=== PATIENT | male | born 1940 | race Caucasian/White ===

== ENCOUNTER 2016-08-11 10:11 | Emergency (ER) | payer MEDICARE, MEDICAID ==
[2016-08-11] MEDS ORDERED: ACETAMINOPHEN 650 MG SUPP.RECT PR ONE (11:51)
[2016-08-11] MEDS ORDERED: NORMAL SALINE 1000 ML 1,000 ML IV PRN (12:03)
--- NOTE | 2016-08-11 12:03 | ER Document Report ---
ED General - General Chief Complaint: Abdominal Pain Stated Complaint: ABDOMINAL PAIN Time seen by provider: 12:02 Mode of Arrival: Ambulatory Information source: Patient Notes: The patient is a 76-year-old man with a history of COPD (2 L nasal cannula) and multiple sclerosis who lives alone in a mobile home (the patient states he is able to get around). The patient is brought in by ambulance with subjective fevers and left lower quadrant pain. Patient states his cat a good appetite and is requesting food. TRAVEL OUTSIDE OF THE [place] IN LAST 30 DAYS: No - HPI Onset: Yesterday Onset/Duration: Gradual Quality of pain: Dull Severity: Mild Pain Level: 1 Associated symptoms: denies: Chills, Fever, Shortness of breath Exacerbated by: Denies Relieved by: Denies Similar symptoms previously: Yes Recently seen / treated by doctor: No - Related Data Allergies/Adverse Reactions: Penicillins Allergy (Verified 05/07/16 09:11) Past Medical History - General Information source: Patient - Social History Smoking Status: Never Smoker Cigarette use (# per day): No Chew tobacco use (# tins/day): No Frequency of alcohol use: None Drug Abuse: None Lives with: Alone Family History: Reviewed & Not Pertinent Patient has suicidal ideation: No Patient has homicidal ideation: No - Past Medical History Cardiac Medical History: Reports: Hx Atrial Fibrillation, Hx Coronary Artery Disease, Hx Hypercholesterolemia, Hx Hypertension Pulmonary Medical History: Reports: Hx COPD Renal/ Medical History: Reports: Hx Kidney Stones GI Medical History: Reports: Hx Gastroesophageal Reflux Disease Psychiatric Medical History: Denies: Hx Depression Past Surgical History: Reports: Hx Cardiac Surgery, Hx Coronary Artery Bypass Graft - 5-way, Hx Open Heart Surgery - 5 vessel bypass - Immunizations Hx Diphtheria, Pertussis, Tetanus Vaccination: Yes Review of Systems - Review of Systems Constitutional: denies: Chills, Fever EENT: No symptoms reported Cardiovascular: No symptoms reported Respiratory: No symptoms reported Gastrointestinal: See HPI Genitourinary: No symptoms reported Male Genitourinary: No symptoms reported Musculoskeletal: No symptoms reported Skin: No symptoms reported Hematologic/Lymphatic: No symptoms reported Neurological/Psychological: No symptoms reported Physical Exam - Vital signs Vitals: Resp 20 08/11/16 10:25 Notes: Physical exam: GENERAL: 76-year-old man, alert and oriented 3, appears dehydrated HEAD: Atraumatic, normocephalic. EYES: Pupils equal round and reactive to light, extraocular movements intact, sclera anicteric, conjunctiva are normal. ENT: TMs normal, nares patent, oropharynx clear without exudates. Dry mucous membranes. NECK: Normal range of motion, supple without lymphadenopathy or JVD. LUNGS: Breath sounds clear to auscultation bilaterally and equal. No wheezes rales or rhonchi. HEART: Regular rate and rhythm without murmurs, rubs or gallops. ABDOMEN: Soft, left lower quadrant tenderness, normoactive bowel sounds. No guarding, no rebound. No masses appreciated. Testes 2: Nontender. Rectal exam: No stool in vault, no masses, no prostate tenderness. Sacrum: Patient does have grade 1 breakdown over the sacrum. EXTREMITIES: Normal range of motion, no pitting or edema. No clubbing or cyanosis. NEUROLOGICAL: Cranial nerves II through XII grossly intact. Normal speech, normal gait. PSYCH: Normal mood, normal affect. SKIN: Warm, Dry, normal turgor, no rashes or lesions noted. Course - Re-evaluation Re-evalutation: 08/11/16 19:13 Note: Chest x-ray is similar to a chest x-ray done in June. The official report states that the findings are consistent with CHF. However, if anything, clinically the patient appears dry. I do not believe easing congestive heart failure. The humerus x-ray shows that he has a healing displaced mid humerus fracture (there is significant callous formation compared to previous x-ray). The abdominal CT shows mesenteric fat stranding around the descending colon which may be a developing colitis or diverticulitis. Clinically, the patient is presenting like a mild diverticulitis. There is 5 days or atelectasis versus consolidation and a left pleural effusion. Clinically the patient does not have any chest pain, shortness of breath or cough and I do not believe he has a pneumonia at this time. I have discussed the findings with the patient. His white count looks good and his vital signs are stable. The patient would like to go home and he has good support from his neighbors and they will be able to order picker/assembler his medicines for him. I will give him [id number] medicines. 08/11/16 19:21 - Vital Signs Vital signs: Temp Pulse Resp BP Pulse Ox 97.8 F 88 20 123/71 96 08/11/16 17:42 08/11/16 17:42 08/11/16 17:42 08/11/16 17:42 08/11/16 17:42 - Laboratory Result Diagrams: 08/11/16 11:59 08/11/16 11:59 Laboratory results interpreted by me: 08/11/16 08/11/16 08/11/16 11:59 11:59 11:59 RBC 4.29 L Hgb 11.6 L Hct 36.7 L MCHC 31.5 L RDW 17.6 H Plt Count 148 L Sodium 135.7 L Calcium 8.1 L ALT 17 L Alkaline Phosphatase 413 H Total Protein 5.3 L Albumin 2.6 L Lipase 14.0 L Urine Protein 30 H Urine Blood SMALL H Urine Urobilinogen 2.0 H - Diagnostic Test Radiology reviewed: Image reviewed, Reports reviewed - Abdominal CT consistent with diverticulitis Discharge - Discharge Clinical Impression: diverticulitis Condition: Stable Disposition: HOME, SELF-CARE Additional Instructions: Recommendations: Rest, drink plenty of fluids, advance diet as tolerated. Take antibiotics as prescribed. Take Zofran for nausea as needed. Return to the emergency room with worsening abdominal pain, persistant pain or pain which moves to the right lower abdomen. You can try Probiotics: Activia Probiotic is sold next is milk and 3225 films : Twice daily for the next 2 weeks. Follow-up with a physician in the next week. Prescriptions: Ciprofloxacin HCl [Cipro 500 mg Tablet] 500 mg PO BID #20 tablet Metronidazole [Flagyl 500 mg Tablet] 500 mg PO TID #30 tablet
[2016-08-11 12:26] LABS: ABSOLUTE EOSINOPHILS # (AUTO) 0.1 10^3/uL (0.0-0.6); ABSOLUTE LYMPHOCYTES (AUTO) 1.1 10^3/uL (0.5-4.7); ABSOLUTE MONOCYTES (AUTO) 0.5 10^3/uL (0.1-1.4); ABSOLUTE NEUT (AUTO) 4.5 10^3/uL (1.7-8.2); BASOPHILS % (AUTO) 0.4 % (0-2); EOSINOPHILS % (AUTO) 2.3 % (0-6); HEMATOCRIT 36.7 % (37.9-51.0); HEMOGLOBIN 11.6 g/dL (13.5-17.0); HGB HCT DIFFERENCE -1.9; LYMPHOCYTES % (AUTO) 17.8 % (13-45); MEAN CORPUSCULAR HGB CONC 31.5 g/dL (32.0-36.0); MEAN CORPUSCULAR VOLUME 86 fl (80-97); MONOCYTES % (AUTO) 7.3 % (3-13); RED BLOOD COUNT 4.29 10^6/uL (4.35-5.55); RED CELL DISTRIBUTION WIDTH 17.6 % (11.5-14.0); SEGMENTED NEUTROPHILS % (AUTO) 72.2 % (42-78); WHITE BLOOD COUNT 6.2 10^3/uL (4.0-10.5)
[2016-08-11 12:27] LABS: APPEARANCE,URINE CLEAR; BILIRUBIN,URINE NEGATIVE (NEGATIVE); GLUCOSE, URINE NEGATIVE (NEGATIVE); KETONES,URINE NEGATIVE (NEGATIVE); LEUKOCYTE ESTERASE,URINE NEGATIVE (NEGATIVE); NITRITE,URINE NEGATIVE (NEGATIVE); PROTEIN,URINE 30 mg/dL (NEGATIVE); URINE SPECIFIC GRAVITY 1.014
[2016-08-11 12:44] LABS: ALANINE AMINOTRANSFERASE 17 U/L (21-72); ALBUMIN 2.6 g/dL (3.5-5.0); ALKALINE PHOSPHATASE 413 U/L (38-126); ANION GAP 9 (5-19); ASPARTATE AMINO TRANSFERASE 30 U/L (17-59); BILIRUBIN,TOTAL 0.6 mg/dL (0.2-1.3); BLOOD UREA NITROGEN 13 mg/dL (7-20); CALCIUM 8.1 mg/dL (8.4-10.2); CARBON DIOXIDE 25 mmol/L (22-30); CHLORIDE 102 mmol/L (98-107); CREATININE RESULT 0.77 mg/dL (0.52-1.25); GLUCOSE 84 mg/dL (75-110); POTASSIUM 3.6 mmol/L (3.6-5.0); SODIUM 135.7 mmol/L (137-145); TOTAL PROTEIN 5.3 g/dL (6.3-8.2)
[2016-08-11] MEDS ORDERED: CIPROFLOXACIN HCL 500 MG TABLET PO ONE (18:43)
[2016-08-11] MEDS ORDERED: METRONIDAZOLE 500 MG TABLET PO ONE (19:01)
[2016-08-11] MEDS ORDERED: ONDANSETRON ODT 4 MG TAB (6 TAB/DSPK) PO PRN (19:16)
[2016-08-12 00:32] VITALS: BP 151/88
== END 2016-08-11 20:20 | disposition home or self-care (01) ==
LOC: ER 10:11
DX: S42.301D Unspecified fracture of shaft of humerus, right arm, subsequent encounter for fracture with routine healing (principal); X58.XXXD Exposure to other specified factors, subsequent encounter; K57.92 Diverticulitis of intestine, part unspecified, without perforation or abscess without bleeding; R10.32 Left lower quadrant pain; J44.9 Chronic obstructive pulmonary disease, unspecified; J90 Pleural effusion, not elsewhere classified; I10 Essential (primary) hypertension; Z88.0 Allergy status to penicillin; Z99.81 Dependence on supplemental oxygen; I25.10 Atherosclerotic heart disease of native coronary artery without angina pectoris; Z87.442 Personal history of urinary calculi; Z95.1 Presence of aortocoronary bypass graft
CPT/HCPCS: 99285; 96360; 36415; 83690; 85025; 80053; 81001; 71010; 73060; 74177; A9270 ×4; J7030

== ENCOUNTER 2016-08-12 06:00 | Emergency (ER) | payer MEDICARE, MEDICAID ==
[2016-08-12] MEDS ORDERED: MAG HYDROX/AL HYDROX/SIMETH SUSP 30 ML UDCUP PO ONE (06:07)
[2016-08-12] MEDS ORDERED: LIDOCAINE 2% VISCOUS SOLN 20 ML UDCUP PO ONE (06:07)
[2016-08-12] MEDS ORDERED: METOCLOPRAMIDE HCL ORAL SOLN 10 MG/10 ML UDCUP PO ONE (06:07)
[2016-08-12] MEDS ORDERED: NORMAL SALINE 1000 ML 1,000 ML IV ONE (06:08)
[2016-08-12] MEDS ORDERED: MORPHINE SULFATE 10 MG/ML INJ IV ONE (06:08)
--- NOTE | 2016-08-12 06:44 | ER Document Report ---
ED General - General Chief Complaint: Epigastric Pain Stated Complaint: ABDOMINAL PAIN Mode of Arrival: Ambulatory Information source: Patient Notes: 76-year-old male with 5 vessel bypass, last cardiac work up 2 years ago who was just diagnosed with colitis a few hours prior presents with complaints of continued abdominal pain and diarrhea but new onset of GERD, sob, chest pressure. Patient denies any fevers or chills. Is noted patient lives by himself has called EMS a total 6 times tonight to assist with his diarrhea, turning on the tv, getting him water, and other non medical tasks TRAVEL OUTSIDE OF THE [place] IN LAST 30 DAYS: No - HPI Onset: Just prior to arrival Onset/Duration: Sudden Quality of pain: Cramping Severity: Mild Pain Level: 1 Associated symptoms: Diarrhea, Nausea Exacerbated by: Denies Relieved by: Denies Similar symptoms previously: Yes Recently seen / treated by doctor: Yes - Related Data Allergies/Adverse Reactions: Penicillins Allergy (Verified 05/07/16 09:11) Past Medical History - Social History Smoking Status: Unknown if Ever Smoked Cigarette use (# per day): No Chew tobacco use (# tins/day): No Smoking Education Provided: No Family History: Reviewed & Not Pertinent Patient has suicidal ideation: No Patient has homicidal ideation: No - Past Medical History Cardiac Medical History: Reports: Hx Atrial Fibrillation, Hx Coronary Artery Disease, Hx Hypercholesterolemia, Hx Hypertension Pulmonary Medical History: Reports: Hx COPD Renal/ Medical History: Reports: Hx Kidney Stones. Denies: Hx Peritoneal Dialysis GI Medical History: Reports: Hx Gastroesophageal Reflux Disease Psychiatric Medical History: Denies: Hx Depression Past Surgical History: Reports: Hx Cardiac Surgery, Hx Coronary Artery Bypass Graft - 5-way, Hx Open Heart Surgery - 5 vessel bypass - Immunizations Hx Diphtheria, Pertussis, Tetanus Vaccination: Yes Review of Systems - Review of Systems Notes: REVIEW OF SYSTEMS: CONSTITUTIONAL : Denies fever, chills, or sweats. Denies recent illness. EENT: Denies eye, ear, throat, or mouth pain or symptoms. Denies nasal or sinus congestion or discharge. Denies throat, tongue, or mouth swelling or difficulty swallowing. CARDIOVASCULAR: Denies chest pain. Denies palpitations or racing or irregular heart beat. Denies ankle edema. RESPIRATORY: Denies cough, cold, or chest congestion. Denies shortness of breath, difficulty breathing, or wheezing. GASTROINTESTINAL: Admits To reflux abdominal pain diarrhea GENITOURINARY: Denies difficulty urinating, painful urination, burning, frequency, blood in urine, or discharge. FEMALE GENITOURINARY: Denies vaginal bleeding, heavy or abnormal periods, irregular periods. Denies vaginal discharge or odor. MUSCULOSKELETAL: Denies back or neck pain or stiffness. Denies joint pain or swelling. SKIN: Denies rash, lesions or sores. HEMATOLOGIC : Denies easy bruising or bleeding. LYMPHATIC: Denies swollen, enlarged glands. NEUROLOGICAL: Denies confusion or altered mental status. Denies passing out or loss of consciousness. Denies dizziness or lightheadedness. Denies headache. Denies weakness or paralysis or loss of use of either side. Denies problems with gait or speech. Denies sensory loss, numbness, or tingling. Denies seizures. PSYCHIATRIC: Denies anxiety or stress. Denies depression, suicidal ideation, or homicidal ideation. ALL OTHER SYSTEMS REVIEWED AND NEGATIVE. Dictation was performed using [employer] voice recognition software PHYSICAL EXAMINATION: GENERAL: Elderly frail appearing male no acute distress HEAD: Atraumatic, normocephalic. EYES: Pupils equal round and reactive to light, extraocular movements intact, sclera anicteric, conjunctiva are normal. ENT: Nares patent, oropharynx clear without exudates. Moist mucous membranes. NECK: Normal range of motion, supple without lymphadenopathy LUNGS: Breath sounds clear to auscultation bilaterally and equal. No wheezes rales or rhonchi. HEART: Regular rate and rhythm without murmurs ABDOMEN: Soft, suprapubic tenderness, nondistended abdomen. No guarding, no rebound. No masses appreciated. Musculoskeletal: Normal range of motion, no pitting or edema. No cyanosis. NEUROLOGICAL: Cranial nerves grossly intact. Normal speech, normal gait. Normal sensory, motor exams PSYCH: Normal mood, normal affect. SKIN: Warm, Dry, normal turgor, no rashes or lesions noted. Physical Exam - Vital signs Vitals: Temp Pulse Resp BP Pulse Ox 98.2 F 104 H 18 156/78 H 95 08/12/16 06:54 08/12/16 06:54 08/12/16 06:54 08/12/16 06:54 08/12/16 06:54 Course - Re-evaluation Re-evalutation: 08/12/16 06:43 Patient requests Nexium for gastric reflux, will give him a GI cocktail morphine for pain. Patient otherwise looks well I do not expect any life- threatening issues since he was just seen however this appears to be more of a social issue given that he lives by himself. none the less a workup for his gerd symptoms pending 08/12/16 07:42 cardiac enzyme is noted to be elevated, ekg is pending , nstemi considered 08/12/16 07:51 new [facility] paged, they refuse due to lack of beds angela paged no beds , available will place on waiting list 08/12/16 07:52 EKG notes new peaked t waves where inversions were noted previously in V3-V5 08/12/16 08:00 08/12/16 08:49 Dr borrego accepts , will have room assignment pending - Vital Signs Vital signs: Temp Pulse Resp BP Pulse Ox 98.2 F 104 H 25 H 104/50 L 94 08/12/16 06:54 08/12/16 06:54 08/12/16 09:01 08/12/16 09:01 08/12/16 09:01 - Laboratory Result Diagrams: 08/12/16 06:37 08/12/16 06:37 Laboratory results interpreted by me: 08/12/16 08/12/16 08/12/16 06:37 06:37 06:37 RBC 4.29 L Hgb 11.7 L Hct 37.0 L MCHC 31.6 L RDW 17.3 H PT 16.6 H APTT 41.8 H Sodium 134.9 L Carbon Dioxide 21 L Glucose 73 L Calcium 8.2 L Alkaline Phosphatase 400 H Total Protein 6.0 L Albumin 2.9 L Lipase 15.6 L Urine Protein Urine Blood 08/12/16 06:58 RBC Hgb Hct MCHC RDW PT APTT Sodium Carbon Dioxide Glucose Calcium Alkaline Phosphatase Total Protein Albumin Lipase Urine Protein 30 H Urine Blood MODERATE H - Diagnostic Test Radiology reviewed: Image reviewed, Reports reviewed - EKG Interpretation by Me EKG shows normal: Sinus rhythm, [place], Intervals, ST-T Waves - peaked t waves noted When compared to previous EKG there are: Changes noted - peaked t waves noted , depression have resolved from 1 month ago Critical Care Note - Critical Care Note Total time excluding time spent on procedures (mins): 37 Comments: 37 minutes of critical care time spent in direct contact evaluating and reevaluating the patient, treating symptoms, reviewing labs and studies and speaking with family and consultants excluding any procedures Discharge - Discharge Clinical Impression: Non-ST elevation (NSTEMI) myocardial infarction, Acute electrocardiography changes, Non-specific colitis Condition: Stable Disposition: [facility]
[2016-08-12 06:57] LABS: ABSOLUTE EOSINOPHILS # (AUTO) 0.1 10^3/uL (0.0-0.6); ABSOLUTE LYMPHOCYTES (AUTO) 1.2 10^3/uL (0.5-4.7); ABSOLUTE MONOCYTES (AUTO) 0.5 10^3/uL (0.1-1.4); ABSOLUTE NEUT (AUTO) 4.2 10^3/uL (1.7-8.2); BASOPHILS % (AUTO) 0.6 % (0-2); EOSINOPHILS % (AUTO) 2.3 % (0-6); HEMOGLOBIN 11.7 g/dL (13.5-17.0); HGB HCT DIFFERENCE -1.9; LYMPHOCYTES % (AUTO) 19.8 % (13-45); MEAN CORPUSCULAR HEMOGLOBIN 27.2 pg (27.0-33.4); MEAN CORPUSCULAR HGB CONC 31.6 g/dL (32.0-36.0); MEAN CORPUSCULAR VOLUME 86 fl (80-97); MONOCYTES % (AUTO) 8.3 % (3-13); RED BLOOD COUNT 4.29 10^6/uL (4.35-5.55); RED CELL DISTRIBUTION WIDTH 17.3 % (11.5-14.0); WHITE BLOOD COUNT 6.1 10^3/uL (4.0-10.5)
[2016-08-12] MEDS ORDERED: CIPROFLOXACIN HCL 500 MG TABLET PO ONE (07:01)
[2016-08-12] MEDS ORDERED: METRONIDAZOLE 500 MG TABLET PO ONE (07:01)
[2016-08-12 07:24] LABS: ALANINE AMINOTRANSFERASE 22 U/L (21-72); ALBUMIN 2.9 g/dL (3.5-5.0); ALKALINE PHOSPHATASE 400 U/L (38-126); ANION GAP 11 (5-19); ASPARTATE AMINO TRANSFERASE 41 U/L (17-59); BILIRUBIN,TOTAL 0.8 mg/dL (0.2-1.3); BLOOD UREA NITROGEN 15 mg/dL (7-20); CALCIUM 8.2 mg/dL (8.4-10.2); CARBON DIOXIDE 21 mmol/L (22-30); CHLORIDE 103 mmol/L (98-107); CREATINE KINASE 111 U/L (55-170); CREATININE RESULT 0.82 mg/dL (0.52-1.25); GLUCOSE 73 mg/dL (75-110); LIPASE 15.6 U/L (23-300); POTASSIUM 3.7 mmol/L (3.6-5.0); SODIUM 134.9 mmol/L (137-145)
[2016-08-12 07:34] LABS: APPEARANCE,URINE CLEAR; BILIRUBIN,URINE NEGATIVE (NEGATIVE); GLUCOSE, URINE NEGATIVE (NEGATIVE); KETONES,URINE NEGATIVE (NEGATIVE); LEUKOCYTE ESTERASE,URINE NEGATIVE (NEGATIVE); NITRITE,URINE NEGATIVE (NEGATIVE); PROTEIN,URINE 30 mg/dL (NEGATIVE); UROBILINOGEN,URINE NEGATIVE mg/dL (<2.0)
[2016-08-12 07:35] LABS: CREATINE KINASE MB 3.34 ng/mL (<4.55)
[2016-08-12 07:37] LABS: TROPONIN I 0.136 ng/mL
[2016-08-12] MEDS ORDERED: HEPARIN SOD (PORCINE) 1,000 UNIT/ML 10 ML VIAL IV ONE (07:49)
[2016-08-12] MEDS ORDERED: HEPARIN SOD (PORCINE) 1,000 UNIT/ML 10 ML VIAL IV PRN (07:49)
[2016-08-12] MEDS ORDERED: HEPARIN SODIUM,PORCINE/D5W 250 ML IV PRN (07:49)
[2016-08-12] MEDS ORDERED: ASPIRIN 81 MG TABLET, CHEWABLE PO ONE (07:59)
[2016-08-12 08:03] LABS: PROTHROMBIN TIME 16.6 SEC (11.4-15.4)
[2016-08-12 08:04] LABS: PARTIAL THROMBOPLASTIN TIME 41.8 SEC (23.5-35.8)
[2016-08-12] MEDS: NITROGLYCERIN 0.4 MG/TAB 25 TAB/BOTTLE SL PRN ×2 (08:13→08:20)
--- NOTE | 2016-08-12 08:23 | EKG REPORT ---
SEVERITY:- ABNORMAL ECG - SINUS TACHYCARDIA MULTIPLE ATRIAL PREMATURE COMPLEXES LEFT ATRIAL ABNORMALITY LVH WITH SECONDARY REPOLARIZATION ABNORMALITY PROBABLE INFERIOR INFARCT, AGE INDETERMINATE ST DEPRESSION, CONSIDER ISCHEMIA, ANT-LAT LDS : Confirmed by: Carroll Gallagher MD 12-Aug-2016 08:22:31
[2016-08-12] MEDS ORDERED: LORAZEPAM INJ 2 MG/1 ML VIAL IV ONE ×2 (08:32→10:47)
[2016-08-12 10:41] VITALS: BP 144/99
== END 2016-08-12 11:06 | disposition short-term general hospital (02) ==
LOC: ER 06:00
DX: I21.4 Non-ST elevation (NSTEMI) myocardial infarction (principal); I25.10 Atherosclerotic heart disease of native coronary artery without angina pectoris; I10 Essential (primary) hypertension; K52.9 Noninfective gastroenteritis and colitis, unspecified; K21.9 Gastro-esophageal reflux disease without esophagitis; J44.9 Chronic obstructive pulmonary disease, unspecified; Z95.1 Presence of aortocoronary bypass graft; Z88.0 Allergy status to penicillin
CPT/HCPCS: 93005; 96376; 99291; 96361; 96375; 96365; 96366; 36415; 82553; 82550; 83690; 85025; 85610; 85730; 80053; 81001; 84484; 71010; 93010; J1644 ×2; A9270 ×4; J3490; J2270; J2060; J7030